=== PATIENT | male | born 1965 | race Caucasian/White ===

== ENCOUNTER 2016-11-10 23:44 | Emergency (ER) | payer BC, OTHER ==
[2016-11-10] MEDS ORDERED: Bupivacaine 0.5% 10 ML SDV INJECT ONE (23:55)
[2016-11-10] MEDS ORDERED: Bupivacaine 0.5% 10 ML SDV ONE (23:56)
--- NOTE | 2016-11-11 00:06 | EDM.PDOC ---
ED HPI Skin/Rash - General Chief Complaint: Laceration Stated Complaint: RIGHT HAND INJURY Time Seen by Provider: 11/11/16 00:03 - History of Present Illness INITIAL COMMENTS - FREE TEXT/NARRATIVE: HISTORY AND PHYSICAL: History of present illness: Patient 51-year-old male presents with subacute right hand injury that occurred at work by a blunt force trauma he sustained a laceration his third and fifth digit he denies other trauma patient states his tetanus is up to date Review of systems: As per history of present illness and below otherwise all systems reviewed and negative. Past medical history: As per history of present illness and as reviewed below otherwise noncontributory. Surgical history: As per history of present illness and as reviewed below otherwise noncontributory. Social history: No reported history of drug or alcohol abuse. Family history: As per history of present illness and as reviewed below otherwise noncontributory. Physical exam: HEENT: Atraumatic, normocephalic, pupils reactive, negative for conjunctival pallor or scleral icterus, mucous membranes moist, throat clear, neck supple, nontender, trachea midline. Lungs: Clear to auscultation, breath sounds equal bilaterally, chest nontender. Heart: S1S2, regular, negative for clicks, rubs, or JVD. Abdomen: Soft, nondistended, nontender. Negative for masses or hepatosplenomegaly. Negative for costovertebral tenderness. Pelvis: Stable nontender. Genitourinary: Deferred. Rectal: Deferred. Extremities: Patient noted to have 2 lacerations to the third and fifth digit respectively with approximately 3 cm moderate depth laceration on the volar aspect of the third digit with no tendon involvement was good hemostasis CMS neurovascular is unremarkable and the fifth digit distal aspect of the volar surface has approximately 1.5 cm moderate depth laceration again with good hemostasis no tendon involvement normal CMS Neuro: Awake, alert, oriented. Cranial nerves II through XII unremarkable. Cerebellum unremarkable. Motor and sensory unremarkable throughout. Exam nonfocal. Diagnostics: X-ray right hand Therapeutics: Both digits were anesthetized with 0.5% Marcaine without epinephrine irrigated with copious of 0.9 normal saline prepped and draped in sterile manner closed with 4-0 nylon suture bacitracin and dressing was Impression: #1 acute right hand injury with multiple laceration Definitive disposition and diagnosis as appropriate pending reevaluation and review of above. - Related Data Allergies Allergy/AdvReac Type Severity Reaction Status Date / Time Penicillins Allergy unknown Verified 11/10/16 23:51 Home Meds: Ambulatory Orders Medication Instructions Recorded Confirmed . [No Known Home Meds] 10/14/15 11/10/16 Past Medical History - Past Health History Medical/Surgical History: Denies Medical/Surgical History HEENT History: Reports: None Cardiovascular History: Reports: None Respiratory History: Reports: None Gastrointestinal History: Reports: None Genitourinary History: Reports: None Psychiatric History: Reports: None - Infectious Disease History Infectious Disease History: Reports: None - Past Surgical History HEENT Surgical History: Reports: None Cardiovascular Surgical History: Reports: None Social & Family History - Family History HEENT: Reports: None Cardiac: Reports: None : Reports: Nephritis (Grandparent) - Tobacco Use Smoking Status *Q: Current Every Day Smoker Years of Tobacco use: 7 Packs/Tins Daily: 0.5 - Recreational Drug Use Recreational Drug Use: No ED ROS GENERAL - Review of Systems Review Of Systems: ROS reveals no pertinent complaints other than HPI. ED EXAM, SKIN/RASH Exam: See Below (See dictation) Course - Vital Signs Last Recorded V/S: Last Vital Signs Temp 36 C 11/10/16 23:51 Pulse 51 L 11/10/16 23:51 Resp 16 11/10/16 23:51 BP 108/66 11/10/16 23:51 Pulse Ox 98 11/10/16 23:51 - Orders/Labs/Meds Orders: Active Orders 24 hr Category Date Time Status Hand Comp Min 3V Rt [CR] Stat Exams 11/10/16 23:52 Ordered Meds: Medications Discontinued Medications Generic Name Dose Route Start Last Admin Trade Name Chuck PRN Reason Stop Dose Admin Bupivacaine HCl 10 ml 11/10/16 23:55 Sensorcaine-Mpf 0.5% INJECT 11/10/16 23:56 ONETIME ONE Bupivacaine HCl Confirm 11/10/16 23:56 Sensorcaine-Mpf 0.5% Administered 11/10/16 23:57 Dose 10 ml .ROUTE .STK-MED ONE Departure - Departure Time of Disposition: 00:06 Disposition: Home, Self-Care 01 Condition: good Clinical Impression: Hand injury, Laceration Forms: ED Department Discharge Additional Instructions: The following information is given to patients seen in the emergency department who are being discharged to home. This information is to outline your options for follow-up care. We provide all patients seen in our emergency department with a follow-up referral. The need for follow-up, as well as the timing and circumstances, are variable depending upon the specifics of your emergency department visit. If you don't have a primary care physician on staff, we will provide you with a referral. We always advise you to contact your personal physician following an emergency department visit to inform them of the circumstance of the visit and for follow-up with them and/or the need for any referrals to a consulting specialist. The emergency department will also refer you to a specialist when appropriate. This referral assures that you have the opportunity for followup care with a specialist. All of these measure are taken in an effort to provide you with optimal care, which includes your followup. Under all circumstances we always encourage you to contact your private physician who remains a resource for coordinating your care. When calling for followup care, please make the office aware that this follow-up is from your recent emergency room visit. If for any reason you are refused follow-up, please contact the [facility] emergency department at and asked to speak to the emergency department charge nurse. Followup primary medical doctor/occupational medicine wound check 48 hours Motrin or Tylenol as directed suture removal 10-14 days return as needed as discussed - My Orders Last 24 Hours: My Active Orders 11/10/16 23:52 Hand Comp Min 3V Rt [CR] Stat - Assessment/Plan Last 24 Hours: My Active Orders 11/10/16 23:52 Hand Comp Min 3V Rt [CR] Stat
[2016-11-11] MEDS ORDERED: Bacitracin Oint 1 GM U/D Packet TOP ONE (00:08)
[2016-11-11 01:43] VITALS: BP 139/80
--- NOTE | 2016-11-12 10:37 | CR ---
EXAM DATE: 11/10/16 PATIENT'S AGE: 51 Patient: MEG SULTANA Facility: [place], [place] Site . Site : 1965 Study: XRay Extremity Right [id number]/[id number] 12:19:04 AM Ordering Physician: Doctor Rodriguez Final Report: Indication: Injury Technique: Three views of the right hand Comparison: None available Findings: Bones: Fractures of the giana of the distal 3rd and 5th phalanges. No dislocation. Joint spaces: Unremarkable. Soft tissues: Soft tissue swelling in the distal aspects of the 3rd, 4th and 5th digits with soft tissue irregularity/injury in the distal 3rd digit. Impression: Fractures of the giana of the 3rd and 5th distal phalanges. Dictated by Jones Nails MD @ 11/11/2016 12:22:40 AM Dictated by: Jones Nails MD @ 11/11/2016 00:22:43 (Electronic Signature) Report Signed by Proxy and Original Signed Document filed in the Medical Record. MTDUday
== END 2016-11-11 00:57 | disposition home or self-care (01) ==
LOC: MW.ED 23:44
DX: S61.212A Laceration without foreign body of right middle finger without damage to nail, initial encounter (principal); S61.216A Laceration without foreign body of right little finger without damage to nail, initial encounter; F17.210 Nicotine dependence, cigarettes, uncomplicated; Z88.0 Allergy status to penicillin; W23.0XXA Caught, crushed, jammed, or pinched between moving objects, initial encounter
CPT/HCPCS: 12002; 73130-26-RT; 73130-RT; 99282; 99283

== ENCOUNTER 2016-11-13 14:33 | Emergency (ER) | payer BC, OTHER ==
[2016-11-13 14:43] VITALS: BP 138/89
--- NOTE | 2016-11-13 14:46 | EDM.PDOC ---
ED HPI Trauma - General Chief Complaint: Upper Extremity Injury/Pain Stated Complaint: SMASHED FINGERS Time Seen by Provider: 11/13/16 14:43 - History of Present Illness INITIAL COMMENTS - FREE TEXT/NARRATIVE: HISTORY AND PHYSICAL: History of present illness: Patient 51-year-old white male was seen by myself several days prior for an injury to his hand that involved tuft fracture x2 and multiple lacerations he declined pain medicine at that time and returns now requesting pain medicine Review of systems: As per history of present illness and below otherwise all systems reviewed and negative. Past medical history: As per history of present illness and as reviewed below otherwise noncontributory. Surgical history: As per history of present illness and as reviewed below otherwise noncontributory. Social history: No reported history of drug or alcohol abuse. Family history: As per history of present illness and as reviewed below otherwise noncontributory. Physical exam: HEENT: Atraumatic, normocephalic, pupils reactive, negative for conjunctival pallor or scleral icterus, mucous membranes moist, throat clear, neck supple, nontender, trachea midline. Lungs: Clear to auscultation, breath sounds equal bilaterally, chest nontender. Heart: S1S2, regular, negative for clicks, rubs, or JVD. Abdomen: Soft, nondistended, nontender. Negative for masses or hepatosplenomegaly. Negative for costovertebral tenderness. Pelvis: Stable nontender. Genitourinary: Deferred. Rectal: Deferred. Extremities: Wounds appear well no evidence of superinfection neurovascular exam is unremarkable Neuro: Awake, alert, oriented. Cranial nerves II through XII unremarkable. Cerebellum unremarkable. Motor and sensory unremarkable throughout. Exam nonfocal. Diagnostics: None Therapeutics: None Impression: #1 acute hand injury Definitive disposition and diagnosis as appropriate pending reevaluation and review of above. Allergies/ADRs: Allergies Penicillins Allergy (Verified 11/13/16 14:41) unknown Home Medications: Ambulatory Orders . [No Known Home Meds] 10/14/15 [Confirmed 11/13/16] Past Medical History - Past Health History Medical/Surgical History: Denies Medical/Surgical History HEENT History: Reports: None Cardiovascular History: Reports: None Respiratory History: Reports: None Gastrointestinal History: Reports: None Genitourinary History: Reports: None Musculoskeletal History: Reports: None Neurological History: Reports: None Psychiatric History: Reports: None Endocrine/Metabolic History: Reports: None Hematologic History: Reports: None Immunologic History: Reports: None Oncologic (Cancer) History: Reports: None Dermatologic History: Reports: None - Infectious Disease History Infectious Disease History: Reports: None - Past Surgical History HEENT Surgical History: Reports: None Cardiovascular Surgical History: Reports: None Social & Family History - Family History Family Medical History: Noncontributory HEENT: Reports: None Cardiac: Reports: None : Reports: Nephritis (Grandparent) - Tobacco Use Smoking Status *Q: Current Every Day Smoker Years of Tobacco use: 7 Packs/Tins Daily: 0.5 - Caffeine Use Caffeine Use: Reports: Coffee, Energy drinks, Soda - Recreational Drug Use Recreational Drug Use: No Review of Systems - Review of Systems Review Of Systems: ROS reveals no pertinent complaints other than HPI. Trauma Exam - Physical Exam Exam: See Below (See dictated) Course - Vital Signs Last Recorded V/S: Last Vital Signs Temp 37.0 C 11/13/16 14:37 Pulse 73 11/13/16 14:37 Resp 18 11/13/16 14:37 BP 138/89 11/13/16 14:37 Pulse Ox 94 L 11/13/16 14:37 Departure - Departure Time of Disposition: 14:45 Disposition: Home, Self-Care 01 Condition: good Clinical Impression: Hand injury Forms: ED Department Discharge Additional Instructions: The following information is given to patients seen in the emergency department who are being discharged to home. This information is to outline your options for follow-up care. We provide all patients seen in our emergency department with a follow-up referral. The need for follow-up, as well as the timing and circumstances, are variable depending upon the specifics of your emergency department visit. If you don't have a primary care physician on staff, we will provide you with a referral. We always advise you to contact your personal physician following an emergency department visit to inform them of the circumstance of the visit and for follow-up with them and/or the need for any referrals to a consulting specialist. The emergency department will also refer you to a specialist when appropriate. This referral assures that you have the opportunity for followup care with a specialist. All of these measure are taken in an effort to provide you with optimal care, which includes your followup. Under all circumstances we always encourage you to contact your private physician who remains a resource for coordinating your care. When calling for followup care, please make the office aware that this follow-up is from your recent emergency room visit. If for any reason you are refused follow-up, please contact the [facility] emergency department at and asked to speak to the emergency department charge nurse. Hydrocodone as prescribed followup with hand surgery as discussed return as needed as discussed
== END 2016-11-13 15:05 | disposition home or self-care (01) ==
LOC: MW.ED 14:33
DX: S69.90XD Unspecified injury of unspecified wrist, hand and finger(s), subsequent encounter (principal); W23.0XXD Caught, crushed, jammed, or pinched between moving objects, subsequent encounter; F17.210 Nicotine dependence, cigarettes, uncomplicated; Z88.0 Allergy status to penicillin
CPT/HCPCS: 99283